=== PATIENT | female | born 1970 | race Caucasian/White ===

== ENCOUNTER 2017-05-14 14:06 | Emergency (ER) | payer OTHER ==
[2017-05-14] MEDS: SOD CHLORIDE 0.9% 1,000 ML IV (16:34)
[2017-05-14] MEDS: ONDANSETRON 4 MG INJ IV (16:42)
[2017-05-14] MEDS: KETOROLAC 30 MG INJ IV (16:43)
[2017-05-14 17:01] LABS: ADD MAN DIFF? NO
[2017-05-14 17:02] LABS: BASOPHILS % 0.3 % (0.0-2.0); EOSINOPHILS # 0.1 10^3/ul (0.0-0.5); EOSINOPHILS % 1.7 % (0.0-7.0); HEMATOCRIT 41.1 % (37.0-47.0); HEMOGLOBIN 13.7 g/dl (12.0-16.0); LYMPHOCYTES # 1.7 10^3/ul (0.8-2.9); LYMPHOCYTES % 28.7 % (15.0-51.0); MEAN CORPUSCULAR HEMOGLOBIN 27.3 pg (29.0-33.0); MEAN CORPUSCULAR HGB CONC 33.3 g/dl (32.0-37.0); MEAN CORPUSCULAR VOLUME 81.9 fl (82.0-101.0); MEAN PLATELET VOLUME 9.9 fl (7.4-10.4); MONOCYTE # 0.4 10^3/ul (0.3-0.9); MONOCYTES % 6.8 % (0.0-11.0); NEUTROPHIL # 3.6 10^3/ul (1.6-7.5); NEUTROPHILS % 62.3 % (39.0-77.0); PLATELET COUNT 355 10^3/UL (140-415); RED BLOOD COUNT 5.02 10^6/ul (4.20-5.40); RED CELL DISTRIBUTION WIDTH 13.6 % (11.5-14.5)
[2017-05-14 17:02] LABS: WHITE BLOOD COUNT 5.8 10^3/ul (4.8-10.8)
[2017-05-14 17:07] LABS: ADD UMIC YES; UR ASCORBIC ACID NEGATIVE (NEGATIVE); UR BILIRUBIN (Dip) NEGATIVE (NEGATIVE); UR BLOOD (Dip) 3+ mg/dL (NEGATIVE); UR CLARITY SLIGHTLY CLOUDY (CLEAR); UR COLOR YELLOW (YELLOW); UR GLUCOSE (Dip) NEGATIVE (NEGATIVE); UR KETONES (Dip) NEGATIVE (NEGATIVE); UR LEUKOCYTE ESTERASE (Dip) 1+ Leu/ul (NEGATIVE); UR NITRITE (Dip) NEGATIVE (NEGATIVE); UR RBC > 182 /HPF (0-5); UR SPECIFIC GRAVITY (Dip) 1.018 (1.003-1.030); UR TOTAL PROTEIN (Dip) NEGATIVE (NEGATIVE); UR UROBILINOGEN (Dip) NEGATIVE (NEGATIVE); UR WBC 41 /HPF (0-5)
[2017-05-14 17:47] LABS: ALANINE AMINOTRANSFERASE 35 IU/L (13-69); ALBUMIN 4.5 g/dl (3.3-4.9); ALBUMIN/GLOBULIN RATIO 1.36; ALKALINE PHOSPHATASE 93 IU/L (42-121); ANION GAP 14 (8-16); ASPARTATE AMINO TRANSFERASE 27 IU/L (15-46); BILIRUBIN,INDIRECT 0.2 mg/dl (0-1.1); BILIRUBIN,TOTAL 0.2 mg/dl (0.2-1.3); BLOOD UREA NITROGEN 11 mg/dl (7-20); CALCIUM 9.3 mg/dl (8.4-10.2); CARBON DIOXIDE 24 mmol/L (21-31); CHLORIDE 107 mmol/L (97-110); CREATININE 0.78 mg/dl (0.44-1.00); GLUCOSE 89 mg/dl (70-220); LIPASE 42 U/L (23-300); POTASSIUM 3.8 mmol/L (3.5-5.1); SODIUM 141 mmol/L (135-144); TOTAL PROTEIN 7.8 g/dl (6.1-8.1)
[2017-05-14] MEDS: HYDROCODONE/APAP (5/325) TAB PO (18:41)
[2017-05-14] MEDS: CEFTRIAXONE 1 GM/50 ML (PMX) 50 ML IVPB (18:41)
== END 2017-05-14 19:13 | disposition home or self-care (01) ==
LOC: FTE 14:06
DX: R10.9 Unspecified abdominal pain (principal)
CPT/HCPCS: 36415; 76775; 80053; 81001; 83690; 85025; 87086; 96374; 96375; 99285-25

== ENCOUNTER 2017-05-25 13:07 | Emergency (ER) | payer OTHER ==
[2017-05-25] MEDS: CEFEPIME 2GM/50 ML (PMX) 50 ML IVPB (14:46)
== END 2017-05-25 15:58 | disposition home or self-care (01) ==
LOC: FTE 13:07
DX: N39.0 Urinary tract infection, site not specified (principal); B96.5 Pseudomonas (aeruginosa) (mallei) (pseudomallei) as the cause of diseases classified elsewhere
CPT/HCPCS: 96374; 99284-25

== ENCOUNTER 2017-08-31 16:58 | Emergency (ER) | payer OTHER ==
[2017-08-31 20:57] LABS: URINE BLOOD (Dip) POC Negative (NEGATIVE); URINE GLUCOSE (Dip) POC Negative (NEGATIVE); URINE KETONES (Dip) POC Negative (NEGATIVE); URINE LEUKOCYTE EST (Dip) POC 1+ (NEGATIVE); URINE NITRITE (Dip) POC Negative (NEGATIVE); URINE TOTAL PROTEIN POC Trace (NEGATIVE)
[2017-08-31 20:57] LABS: URINE PH (Dip) POC 7.5 (5.0-8.5)
[2017-08-31] MEDS: PHENAZOPYRIDINE 100 MG TAB PO (21:28)
[2017-08-31] MEDS: CEPHALEXIN 500 MG CAP PO (21:30)
[2017-08-31] MEDS: IBUPROFEN 600 MG TAB PO (22:03)
== END 2017-08-31 22:05 | disposition home or self-care (01) ==
LOC: FTE 16:58
DX: R30.0 Dysuria (principal)
CPT/HCPCS: 81003; 81025; 99283